=== PATIENT | female | born 1960 | race Caucasian/White ===

== ENCOUNTER → 2019-07-13 | Outpatient (CLI) | payer OTHER ==
[~2019-07-13] MED LIST: ZOCOR40 MG PO
--- NOTE | 2019-07-13 18:13 | CARDNUC ---
[place] [address] CARDIAC NUCLEAR IMAGING REPORT Name: CARLTONDAVID Room: [facility]#: [id number] Admission: 07/13/19 Attend Phys: Enoc Barrett MD Discharge: Date of : 62 Date of Service: 07/13/191811 Report #: [id number] THIS REPORT FOR: //name// APPROVED REPORT Study performed: 07/13/2019 09:26:02 Indication: CAD s/p PCI Patient Location: Out-Patient Stress Tech: Ritika Barrera Stress Nurse: Sherine Fall RN Ht: 5 ft 5 in Wt: 125 lbs BSA: 1.62 m2 BMI: 20.79 Medical History Medical History: CAD s/p VA, CAD s/p stent, COPD, Former Smoker, HTN, Hyperlipidemia, PVD, Back surgery, Foot drop. Medications: Carvedilol, ASA-81 MG, SIMVASTATIN. Allergies: Cephalosporins, Gabapentin, Theophylline. Cardiac Risk Factors: Age, FHX of CAD, HTN, Hyperlipidemia, Past Smoker, PVD. Previous Cardiac Procedures: PCI, Myocardial infarction Pretest Chest Pain Characteristics: No chest pain Exercise History: Indeterminate Physical Disabilities: FOOT DROP WITH BRACE, S/P BACK SURGERY. Meds Held (24 hrs): Carvedilol Resting Data Rest SPECT myocardial perfusion imaging was performed in supine position 30 minutes following the intravenous injection of 11.8 mCi of Tc-99m Sestamibi. Time of rest injection: 08:00 The images were gated to evaluate regional wall motion and calculate left ventricular ejection fraction. Administration Route: IV Administration Site: Left Arm Pharmacologic Stress Pharmacologic stress test was performed by injecting Regadenoson 0.4 mg IV push over 10-15 seconds immediately followed by the intravenous injection of 36.0 mCi of Tc-99m Sestamibi. Time of stress injection: 09:30 Administration Route: IV Administration Site: [place] [address] CARDIAC NUCLEAR IMAGING REPORT Name: DAVID VINCENT Room: [facility]#: [id number] Admission: 07/13/19 Attend Phys: Enoc Barrett MD Discharge: Date of : 62 Date of Service: 07/13/19 1812 Report #: [id number] Heart Rate at time of stress injection: 83 bpm. Gated Stress SPECT was performed 45 minutes after stress injection. Prone imaging was performed. Stress Test Details Stress Test: Pharmacologic stress testing performed using 0.4 mg of regadenoson per 5 mL given IV over 10 seconds. Reason for pharmacologic stress test: FOOT DROP WITH BRACE, S/P BACK SURGERY.. HR Max Heart Rate (APMHR): 163 bpm Resting HR: 60 bpm Target HR (85% APMHR): 138 bpm Max HR Achieved: 88 bpm % of APMHR: 53 Recovery HR: 75 bpm BP Resting BP: 135/82 mmHg Max BP: 118/77 mmHg Recovery BP: 133/83 mmHg ECG Resting ECG: Sinus Rhythm Stress ECG: Sinus Rhythm ST Change: None Arrhythmia: None Recovery ECG: Sinus Rhythm Recovery ST Change: None Recovery Arrhythmia: None Clinical Reason for Termination: Completed protocol Stress Symptoms: FUZZY FEELING ALL OVER. Exercise duration: 00 min 00 sec Exercise capacity: 1.00 METs The patient tolerated Lexiscan infusion without significant cardiac symptoms. Nurse Comments 58 YEAR OLD FEMALE PRESENTED FOR SITTING LEXISCAN WITH BRACE ON HER LEFT LEG R/T FOOT DROP. PATIENT TOLERATED SITTING LEXISCAN WELL. RECOVERY UNREMARKABLE WITH PO CAFFEINE, EFFECTIVE. PATIENT WAS ESCORTED BY STAFF TO NUCLEAR MEDICINE FOR IMAGES. PATIENT WAS STABLE WITH NO COMPLAINTS AT THAT TIME[place] [address] CARDIAC NUCLEAR IMAGING REPORT Name: CESARIO VINCENTRASHIDA Peterson Room: [facility]#: [id number] Admission: 07/13/19 Attend Phys: Enoc Barrett MD Discharge: Date of : 62 Date of Service: 07/13/19 1812 Report #: [id number] The baseline 12-lead EKG shows sinus rhythm without significant ST or T wave abnormality. EKGs obtained during and post Lexiscan infusion show sinus rhythm with no significant ST or T wave changes when compared to baseline. There were no stress-induced arrhythmias. Study Quality Study: Good Artifact: Mild Breast artifact Study Data At rest, the left ventricular ejection fraction was 62%.. Post stress, the left ventricular ejection was 69%.. TID = 1.04. Perfusion Perfusion images obtained at rest show mild photopenia in the mid anterior wall likely due to breast attenuation artifact. Post stress perfusion images show uniform uptake of the radioisotope throughout the myocardium with no defects. Wall Motion Normal left ventricular wall motion. Nuclear Conclusion ECG Findings: negative for ischemia Clinical Findings: negative for ischemia Nuclear Findings: negative for ischemia Exercise Capacity: not assessed Left Ventricular Function: normal Risk Study: low Myocardial perfusion images show no defect to suggest infarct or ischemia. Left ventricular systolic function appears normal on gated studies. This is a low risk study. <Conclusion> The baseline 12-lead EKG shows sinus rhythm without significant ST or T wave abnormality. EKGs obtained during and post Lexiscan infusion show sinus rhythm with no significant ST or T wave changes when compared to baseline. There were no stress-induced arrhythmias. <ELECTRONICALLY SIGNED> By: Sanford Lu MD, FACC 07/13/191811 11 11 Sanford Lu MD, FACC /INF
== END ==
LOC: M.NUC 07-09 08:23
DX: I25.10 Atherosclerotic heart disease of native coronary artery without angina pectoris (principal); I25.2 Old myocardial infarction; J44.9 Chronic obstructive pulmonary disease, unspecified; I10 Essential (primary) hypertension; Z87.891 Personal history of nicotine dependence; E78.5 Hyperlipidemia, unspecified

== ENCOUNTER 2019-08-25 18:47 | Emergency (ER) | payer OTHER ==
[~2019-08-25] VITALS: Ht 165.1 cm; Wt 54.4 kg
[2019-08-25] MEDS ORDERED: COREG6.25 MG PO (19:00)
[2019-08-25] MEDS ORDERED: CELEXA10 MG PO (19:00)
[2019-08-25] MEDS ORDERED: SINGULAIR 10 MG10 M1 PO (19:01)
[2019-08-25] MEDS ORDERED: TIZANIDINE HCL4 M1 PO (19:01)
[2019-08-25] MEDS ORDERED: AUGMENTIN 875-1 EACH PO ×2 (19:18→19:52)
[2019-08-25 20:11] VITALS: BP 148/88
== END 2019-08-25 20:11 | disposition home or self-care (01) ==
LOC: M.ERS 18:47
DX: S51.811A Laceration without foreign body of right forearm, initial encounter (principal); I25.2 Old myocardial infarction; J45.909 Unspecified asthma, uncomplicated; Z98.890 Other specified postprocedural states; Z88.5 Allergy status to narcotic agent; Z88.1 Allergy status to other antibiotic agents; Z88.2 Allergy status to sulfonamides; W54.0XXA Bitten by dog, initial encounter; Y92.89 Other specified places as the place of occurrence of the external cause; Y93.89 Activity, other specified; Y99.8 Other external cause status